=== PATIENT | male | born 1965 | race Caucasian/White ===

== ENCOUNTER 2025-01-20 16:32 | Emergency (ER) | payer MEDICARE, OTHER ==
[~2025-01-20] VITALS: Ht 167.6 cm; Wt 57.0 kg
--- NOTE | ~2025-01-20 | EKG ---
[facility] [address] [facility] [place], [place] [address] Draft EK completed, results pending confirmation PATIENT NAME: DEUCE REYES KRISTY Electrocardiogram DATE OF : 65 PHYSICIAN: PRELIMINARY REPORT #: [id number] REPORT IS CONFIDENTIAL AND NOT TO BE RELEASED WITHOUT AUTHORIZATION
[2025-01-20 17:10] LABS: BASOPHILS 0.2 % (0.2-1.2); EOSINOPHILS 0 % (0.8-7.0); HEMATOCRIT 33.5 % (40.1-51.0); HEMOGLOBIN 11.8 g/dL (13.7-17.5); LYMPHOCYTES 3.9 % (21.8-53.1); MCH 34.2 PG (25.7-32.2); MCHC 35.2 g/dL (32.3-36.5); MCV 97.1 fL (79.0-92.2); MONOCYTES 9.3 % (5.3-12.2); NEUTROPHILS 85.9 % (34.0-67.9); PLATELET COUNT 240 K/uL (163-337); RBC 3.45 M/uL (4.63-6.08)
[2025-01-20] MEDS ORDERED: FOLIC ACID 1 MG TAB PO ONE (17:15)
[2025-01-20] MEDS ORDERED: MAGNESIUM SULFATE 2 GM/50 ML BAG IV ONE ×2 (17:15→17:30)
[2025-01-20] MEDS ORDERED: SODIUM CHLORIDE 0.9% 1,000 ML IV PRN (17:15)
[2025-01-20] MEDS ORDERED: PHENOBARBITAL SOD 130 MG/ML VIAL IV ONE (17:15)
[2025-01-20] MEDS ORDERED: THIAMINE HCL 100 MG TAB PO ONE (17:15)
[2025-01-20] MEDS ORDERED: FOLIC ACID 1 MG/0.2 ML ML IV ONE (17:15)
[2025-01-20] MEDS ORDERED: THIAMINE HCL 200 MG/2 ML VIAL IV ONE (17:15)
[2025-01-20] MEDS ORDERED: MULTIVITAMINS THERAPEUTIC 1 EA TAB PO ONE (17:15)
[2025-01-20 17:24] LABS: ALBUMIN 3.3 g/dL (3.4-5.0); ALBUMIN/GLOBULIN RATIO 0.69 (1.1-2.4); ANION GAP 22.2 (7-21); BILIRUBIN, TOTAL 0.9 mg/dL (0.2-1.0); BUN/CREATININE RATIO 15.19 (6.0-28.6); CREATININE, SERUM 6.12 mg/dL (0.70-1.30); POTASSIUM 3.2 mmol/L (3.5-5.1); PROTEIN, TOTAL 8.1 g/dL (6.4-8.2)
[2025-01-20 17:26] LABS: CALCIUM 6.1 mg/dL (8.5-10.1); MAGNESIUM 0.4 mg/dL (1.8-2.4)
[2025-01-20] MEDS ORDERED: LIDOCAINE 2% VISCOUS 6 ML SYR TOP ONE (20:15)
[2025-01-20 20:32] VITALS: BP 144/81
== END 2025-01-20 20:30 | disposition short-term general hospital (02) ==
LOC: ED 16:32 → EDBD 16:33 → ED 16:33
PROVIDERS: Emergency Medicine
DX: N17.9 Acute kidney failure, unspecified (principal)
CPT/HCPCS: 36415; 51702; 51798; 80053; 81001; 83690; 83735; 84484; 85025; 93005; 93010; 94799; 99285-25; G0480; J2560; J3411; J3475; J7030